=== PATIENT | female | born 1965 | race Two or more races ===

== ENCOUNTER 2016-10-24 14:22 | Emergency (ER) | payer MEDICAID ==
[~2016-10-24] VITALS: Wt 79.0 kg
[2016-10-24] MEDS ORDERED: IBUP-1542 PO (14:51)
[2016-10-24] MEDS ORDERED: CYCL-319 PO (14:51)
--- NOTE | 2016-10-24 15:04 | ERD ---
ER Documentation Chief Complaint Date/Time DATE: 10/24/16 TIME: 15:00 Chief Complaint CHRONIC LOWER BACK PAIN HPI 51 year old female presenting to the emergency department complaining of left buttock pain that radiates down her leg for the past year. Patient states that the pain is moderate to severe. Patient states that she was seen at all of you and out of the clinic who have given her a referral to see a physical therapist. She states that she was given Tylenol for pain which has not helped her. Patient denies any saddle anesthesia, she denies any bowel or bladder incontinence ROS All systems reviewed and are negative except as per history of present illness. Medications Home Meds Active Scripts Cyclobenzaprine Hcl* (Cyclobenzaprine Hcl*) 10 Mg Tablet, 10 MG PO TID, #30 TAB Prov:BARBARA SCHUMACHER PA-C 10/24/16 Ibuprofen* (Motrin*) 600 Mg Tab, 600 MG PO Q6H Y for PAIN AND OR ELEVATED TEMP, #30 TAB Prov:BARBARA SCHUMACHER PA-C 10/24/16 PMhx/Soc History of Surgery: Yes (gall bladder) Anesthesia Reaction: No Hx Neurological Disorder: No Hx Respiratory Disorders: No Hx Cardiac Disorders: No Hx Psychiatric Problems: No Hx Miscellaneous Medical Probl: No Hx Alcohol Use: No Hx Substance Use: No Hx Tobacco Use: No Smoking Status: Never smoker Physical Exam Vitals Vital Signs Date Time Temp Pulse Resp B/P Pulse Ox O2 Delivery O2 Flow Rate FiO2 10/24/16 14:23 98.0 78 18 129/71 99 Physical Exam GENERAL: WD/WN, in no apparent distress, non-toxic appearing HENT: NC/AT EYES: Conjunctiva normal NECK: Supple PULM: Normal labored breathing CV: Good capillary refill GI: Non-distended, no guarding BACK: no deformities noted, normal spinal curvature, TTP on left lumbar and left buttock region, non-tender on spine midline, + straight leg raise EXT: No clubbing, cyanosis, or edema NEURO: Moves on all fours, sensation intact, normal gait SKIN: intact PSYCH: Normal mood Procedures/MDM This is a 51-year-old female presenting to emergency department with sciatica. Patient presents with a referral slip from her clinic for physical therapy. Patient was confused on her condition and treatment in regards to this condition. I have given her a lengthy discussion in regards to sciatica and discussed with her it is best to get a referral list from her primary care physician for physical therapy. Patient did not have any evidence of cauda equina. I have given her a prescription for anti-inflammatories ibuprofen and Flexeril. I discussed with her to return to the ER for any worsening symptoms patient understands and agrees with this plan Departure Diagnosis: Primary Impression: Sciatica Condition: Stable Patient Instructions: Back Exercises: Lower Back Rotation, Back Exercises: Side Stretch, Understanding Sciatica, Back Pain W/ Sciatica Additional Instructions: Vis[facility] [place] [facility] [facility] para un EXAMEN.Regrese a estas instalaciones si no se mejora kalyn esperbamos o kalyn le dijimos. [place] toda la medicina [place] y kalyn se le indic. Regrese a estas instalaciones si no se mejora kalyn esperbamos o kalyn le dijimos. BARBARA SCHUMACHER PA-C Oct 24, 2016 15:04
== END 2016-10-24 15:00 | disposition home or self-care (01) ==
LOC: FTE 14:22
DX: M54.42 Lumbago with sciatica, left side (principal)
CPT/HCPCS: 99283

== ENCOUNTER 2016-11-06 20:48 | Emergency (ER) | payer MEDICAID, OTHER ==
[~2016-11-06] VITALS: Wt 83.5 kg
[~2016-11-06 20:48] MED LIST: CYCL-319 PO; IBUP-1542 PO
--- NOTE | 2016-11-06 21:45 | ERD ---
ER Documentation Chief Complaint Date/Time DATE: 11/06/16 TIME: 21:45 Chief Complaint Left ankle and heel pain. twisted her foot 2 months ago.? HPI Is a 51-year-old female presents the emergency department today complaining of foot and ankle pain for the past month. Patient states that she fell and twisted her ankle since that time she has had pain. States has been taking Tylenol for pain. Denies any fevers or chills. States she has pain with walking and cannot put her foot down. ROS All systems reviewed and are negative except as per history of present illness. Medications Home Meds Active Scripts Naproxen* (Naprosyn*) 500 Mg Tablet, 500 MG PO BID Y for PAIN AND/OR INFLAMMATION, #30 TAB Prov:ANGELA ABREU PA-C 11/06/16 Tramadol HCl (Tramadol HCl) 50 Mg Tablet, 50 MG PO Q4 Y for PAIN, #20 TAB Prov:ANGELA ABREU PA-C 11/06/16 Cyclobenzaprine Hcl* (Cyclobenzaprine Hcl*) 10 Mg Tablet, 10 MG PO TID, #30 TAB Prov:BARBARA SCHUMACHER PA-C 10/24/16 Ibuprofen* (Motrin*) 600 Mg Tab, 600 MG PO Q6H Y for PAIN AND OR ELEVATED TEMP, #30 TAB Prov:BARBARA SCHUMACHER PA-C 10/24/16 Allergies Allergies: Coded Allergies: No Known Allergy (Unverified , 11/06/16) PMhx/Soc History of Surgery: Yes (gall bladder) Anesthesia Reaction: No Hx Neurological Disorder: No Hx Respiratory Disorders: No Hx Cardiac Disorders: No Hx Psychiatric Problems: No Hx Miscellaneous Medical Probl: No Hx Alcohol Use: No Hx Substance Use: No Hx Tobacco Use: No Smoking Status: Never smoker Physical Exam Vitals Vital Signs Date Time Temp Pulse Resp B/P Pulse Ox O2 Delivery O2 Flow Rate FiO2 11/06/16 21:16 99.1 81 20 141/84 100 Physical Exam Const: No acute distress Head: Atraumatic Eyes: Normal Conjunctiva ENT: Normal External Ears, Nose and Mouth. Neck: Full range of motion..~ No meningismus. Resp: Clear to auscultation bilaterally Cardio: Regular rate and rhythm, no murmurs Skin: No petechiae or rashes Back: No midline or flank tenderness Ext: Left foot and ankle with no obvious deformity. No effusion. No ecchymosis. Tenderness to palpation medial malleolus and heel. Pulses 2+. Distal neurovascularly intact. Neur: Awake and alert Psych: Normal Mood and Affect Results 24 hrs Current Medications Medications (Trade) Dose Ordered Sig/David Route PRN Reason Start Time Stop Time Status Last Admin Dose Admin Acetaminophen/ Hydrocodone Bitart ([place] (5/325)) 1 tab ONCE ONCE PO 11/06/16 22:00 11/06/16 22:00 DC 11/06/16 21:44 Ibuprofen (Motrin) 800 mg ONCE ONCE PO 11/06/16 22:00 11/06/16 22:01 DC 11/06/16 21:48 DIAGNOSTIC IMAGING REPORT Patient: FARIHA WATERS : 1965 Age: 51 Sex: F MR #: [id number] DOS: 11/06/16 0000 Ordering MD: ANGELA ABREU PA-C Location: [facility] Room/Bed: PROCEDURE: XR Ankle. CLINICAL INDICATION: 51-year-old female. Left ankle pain. TECHNIQUE: Three views of the left ankle. COMPARISON: None available. FINDINGS: No acute fracture or dislocation is identified. There is an osteochondral lesion in the medial talar dome with a small subchondral lucency. Negative for depression of the articular surface. Normal alignment on this non-stressed view. The joint spaces are preserved. Mild soft tissue swelling over lateral malleolus.. IMPRESSION: Negative for evidence of acute fracture or dislocation of the left ankle. Osteochondral lesion medial talar dome is likely unrelated to acute trauma. RPTAT: HCTS Physician Mehul Date Time Electronically viewed and signed by Physician Mehul on 11/06/2016 22: 24 CS/ CC: ANGELA ABREU PA-C DIAGNOSTIC IMAGING REPORT Patient: FARIHA WATERS : 1965 Age: 51 Sex: F MR #: [id number] DOS: 11/06/16 0000 Ordering MD: ANGELA ABREU PA-C Location: [facility] Room/Bed: PROCEDURE: XR Foot. CLINICAL INDICATION: 51-year-old female Pain. TECHNIQUE: Three views of the left foot. COMPARISON: None available. FINDINGS: No fracture or dislocation is identified. Mild osteoarthritis of the talonavicular joint with osteophytes and a small geode in the dorsal navicular. Bone spur at the base of the calcaneus. Calcified phleboliths in the dorsal soft tissues. There may be mild soft tissue swelling at the medial aspect of the midfoot at the site of pain.. . IMPRESSION: Negative for evidence of acute fracture or dislocation of the left foot. RPTAT: HCTS Physician Mehul Date Time Electronically viewed and signed by Monica Ralph, Physician on 11/06/2016 22: 22 CS/ CC: ANGELA ABREU PA-C Procedures/MDM This a 51-year-old female who presents emergency department today complaining of left foot and ankle pain after twisting her ankle approximately 1 month ago. States she is having pain with ambulation and has been taking Tylenol for the pain but she is unable to put her foot down. Patient's trauma and difficulty ambulating I did obtain x-rays Per the radiology report images of the left ankle show no acute fracture dislocation. There is an osteochondral lesion in the medial talar dome with a small subchondral lucency. Negative for depression of the articular surface. Joint spaces are preserved. There is mild soft tissue swelling over the lateral malleolus. Osteochondral lesion medial talar dome is likely unrelated to acute trauma. Images of the left foot show no fracture dislocation. There is mild osteoporosis of the talonavicular joint with osteophytes and a small geode in the dorsal navicular area there is a bone spur at the base of the calcaneus. Patient heel spur and osteochondral lesion likely the source of the patient's foot and ankle pain. I have explained this to her. I explained her that she is to follow the primary care doctor for referral to affirmative action specialist. Low suspicion for septic joint or gout. She was given Motrin here in the emergency department patient was driving. She will begin a short course of tramadol, Naprosyn and Tylenol for home. I did offer crutches to help the patient ambulate however she declined. At this time the patient is stable for discharge and outpatient management. Patient should follow up with their PCP in the next 1-2 days. They may return to the emergency department sooner for any persistent or worsening of symptoms. Patient understood and agreed with the plan. Departure Diagnosis: Primary Impression: Ankle pain Laterality: left Chronicity: chronic Qualified Code: M25.572 - Chronic pain of left ankle Additional Impression: Heel spur Laterality: left Qualified Code: M77.32 - Heel spur, left Condition: Fair ANGELA ABREU PA-C Nov 06, 2016 21:45
[2016-11-06] MEDS ORDERED: IBUPROFEN 800 MG TAB PO ONE (22:00)
[2016-11-06] MEDS ORDERED: HYDROCODONE/APAP (5/325) TAB PO ONE (22:00)
--- NOTE | 2016-11-06 22:22 | RADRPT ---
PROCEDURE: XR Foot. CLINICAL INDICATION: 51-year-old female Pain. TECHNIQUE: Three views of the left foot. COMPARISON: None available. FINDINGS: No fracture or dislocation is identified. Mild osteoarthritis of the talonavicular joint with osteo phytes and a small geode in the dorsal navicular. Bone spur at the base of the calcaneus. Calcifie d phleboliths in the dorsal soft tissues. There may be mild soft tissue swelling at the medial aspe ct of the midfoot at the site of pain.. . IMPRESSION: Negative for evidence of acute fracture or dislocation of the left foot. RPTAT: HCTS Physician Mehul Date Time Electronically viewed and signed by Physician Mehul on 11/06/2016 22:22 /
--- NOTE | 2016-11-06 22:25 | RADRPT ---
PROCEDURE: XR Ankle. CLINICAL INDICATION: 51-year-old female. Left ankle pain. TECHNIQUE: Three views of the left ankle. COMPARISON: None available. FINDINGS: No acute fracture or dislocation is identified. There is an osteochondral lesion in the medial talar dome with a small subchondral lucency. Negative for depression of the articular surface. Normal a lignment on this non-stressed view. The joint spaces are preserved. Mild soft tissue swelling over lateral malleolus.. IMPRESSION: Negative for evidence of acute fracture or dislocation of the left ankle. Osteochondral lesion media l talar dome is likely unrelated to acute trauma. RPTAT: HCTS Physician Mehul Date Time Electronically viewed and signed by Physician Mehul on 11/06/2016 22:24 /
[2016-11-06] MEDS ORDERED: TRAM50TA2 PO (22:34)
[2016-11-06] MEDS ORDERED: NAPR-260 PO (22:35)
[2016-11-06 23:19] VITALS: BP 144/96; PULSE 73; RESP 16; TEMP 98.4
== END 2016-11-06 23:21 | disposition home or self-care (01) ==
LOC: FTE 20:48
DX: M25.572 Pain in left ankle and joints of left foot (principal); M77.32 Calcaneal spur, left foot
CPT/HCPCS: 73610; 73630; Z7502; Z7610

== ENCOUNTER 2018-02-17 07:22 | Day surgery (SDC) | END 2018-02-17 13:25 | disposition home or self-care (01) ==

== ENCOUNTER 2018-04-13 07:07 | Emergency (ER) | payer SELFPAY ==
[~2018-04-13] VITALS: Wt 78.0 kg
[~2018-04-13 07:07] MED LIST changes: +ASPIRIN; -CYCL-319 PO
[2018-04-13] MEDS ORDERED: SOD CHLORIDE 0.9% 1,000 ML IV STA (08:17)
[2018-04-13] MEDS ORDERED: ONDANSETRON 4 MG INJ IV STA (08:17)
[2018-04-13 08:29] VITALS: BP 124/66; PULSE 55; RESP 17
--- NOTE | 2018-04-13 08:29 | ERD ---
ER Documentation Chief Complaint Chief Complaint DIARRHEA X3 DAYS, NAUSEA, ABD PAIN HPI 53 yo female no significant past medical history presents with 3 days of symptoms of diarrhea. She describes mild epigastric abdominal cramping with multiple episodes of loose stool approximately 10 times per day. She denies any recent travel, sick contacts, antibiotics. No chest pain. Mild nausea but no vomiting. During the patient's encounter translation services were utilized Language: [place]alan Source: In person ROS All systems reviewed and are negative except as per history of present illness. Medications Home Meds Active Scripts Ondansetron (Ondansetron Odt) 4 Mg Tab.rapdis, 4 MG PO Q6H PRN for NAUSEA AND/OR VOMITING, #20 TAB Prov:KLAUS BALES MD 04/13/18 Dicyclomine HCl (Dicyclomine HCl) 10 Mg Capsule, 10 MG PO TID PRN for ABDOMINAL CRAMPING, #20 CAP Prov:KLAUS BALES MD 04/13/18 Reported Medications Naproxen* (Naproxen*) 375 Mg Tablet, 375 MG PO BID PRN for PAIN, TAB 04/13/18 Discontinued Reported Medications [Aspirin] No Conflict Check 02/17/18 Discontinued Scripts Ibuprofen* (Motrin*) 600 Mg Tab, 600 MG PO Q6H PRN for PAIN AND OR ELEVATED TEMP, #30 TAB Prov:BARBARA SCHUMACHER PA-C 10/24/16 Allergies Allergies: Coded Allergies: No Known Allergy (Unverified , 02/17/18) PMhx/Soc History of Surgery: Yes (CHOLECYSTECTOMY) Anesthesia Reaction: Yes (PT STATES THAT IT TAKES MORE NUMBING MEDICATION FOR EFFECT FOR DENTAL VISIT) Hx Neurological Disorder: No Hx Respiratory Disorders: No Hx Cardiac Disorders: No Hx Psychiatric Problems: No Hx Miscellaneous Medical Probl: No Hx Alcohol Use: No Hx Substance Use: No Hx Tobacco Use: No Smoking Status: Never smoker FmHx Family History: No diabetes Physical Exam Vitals Vital Signs Date Temp Pulse Resp B/P (MAP) Pulse Ox O2 O2 Flow FiO2 Time Delivery Rate 04/13/18 55 17 124/66 100 Room Air 08:29 (85) 04/13/18 97.4 68 20 133/83 99 07:14 (100) Physical Exam General: Well developed, well nourished, no acute distress Head: Normocephalic, atraumatic. Eyes: Pupils equally reactive, EOM intact ENT: Moist mucous membranes Neck: Supple, no lymphadenopathy Respiratory: Lungs clear bilaterally, no distress Cardiovascular: RRR, no murmurs, rubs, or gallops Abdominal: Soft, non-tender, non-distended, no peritoneal signs, no tenderness to McBurney's point, negative Barlow sign : Deferred MSK: No edema, no unilateral swelling, 5/5 strength Neurologic: Alert and oriented, moving all extremities, normal speech, no focal weakness, no cerebellar signs Skin: No rash Psych: Normal mood Result Diagram: 04/13/18 0822 04/13/1822 Results 24 hrs Laboratory Tests Test 04/13/18 08:22 White Blood Count 5.0 10^3/ul Red Blood Count 4.66 10^6/ul Hemoglobin 13.9 g/dl Hematocrit 42.3 % Mean Corpuscular Volume 90.8 fl Mean Corpuscular Hemoglobin 29.8 pg Mean Corpuscular Hemoglobin Concent 32.9 g/dl Red Cell Distribution Width 13.1 % Platelet Count 304 10^3/UL Mean Platelet Volume 10.8 fl Immature Granulocytes % 0.200 % Neutrophils % 53.7 % Lymphocytes % 31.4 % Monocytes % 10.7 % Eosinophils % 3.8 % Basophils % 0.2 % Nucleated Red Blood Cells % 0.0 /100WBC Immature Granulocytes # 0.010 10^3/ul Neutrophils # 2.7 10^3/ul Lymphocytes # 1.6 10^3/ul Monocytes # 0.5 10^3/ul Eosinophils # 0.2 10^3/ul Basophils # 0.0 10^3/ul Nucleated Red Blood Cells # 0.0 10^3/ul Sodium Level 146 mmol/L Potassium Level 4.0 mmol/L Chloride Level 107 mmol/L Carbon Dioxide Level 27 mmol/L Anion Gap 12 Blood Urea Nitrogen 17 mg/dl Creatinine 0.52 mg/dl Est Glomerular Filtrat Rate mL/min > 60 mL/min Glucose Level 95 mg/dl Calcium Level 9.4 mg/dl Current Medications Medications Dose Sig/David Start Time Status Last (Trade) Ordered Route PRN Stop Time Admin Dose Reason Admin Sodium 1,000 ml @ Q1H STAT 04/13/18 04/13/18 Chloride 1,000 mls/hr IV 08:17 08:31 04/13/18 09:16 Ondansetron 4 mg ONCE STAT 04/13/18 DC 04/13/18 HCl (Zofran IV 08:17 08:31 Inj) 04/13/18 08:18 Dicyclomine 10 mg ONCE ONCE 04/13/18 DC 04/13/18 HCl IM 08:30 08:31 (Bentyl) 04/13/18 08:31 Procedures/MDM LAB INTERPRETATION: * No leukocytosis, no electrolyte disturbance MEDICAL DECISION MAKING: The patient has abdominal pain and diarrhea likely viral in etiology. She has a benign abdominal exam without concern for acute intra-abdominal process. No signs or symptoms concerning for hepatobiliary process, appendicitis or bowel obstruction. Very low pretest probability for bacterial infection. Patient has large volumes of diarrhea and will benefit from laboratory testing to rule out significant dehydration. IV fluids and symptom control appropriate. No risk factors for C. difficile colitis. ER COURSE: * Laboratory testing reassuring * Symptoms improved with fluids and nonnarcotic pain medication * At this point the patient is safe for discharge, likely viral in etiology. Return precautions were discussed and understood. CONSULTATION: [None] DISPOSITION PLAN: The patient does not have an identifiable emergent medical condition that warrants inpatient hospitalization at this time. The patient is deemed safe for discharge with outpatient follow-up. We discussed follow up with the patient's primary care doctor within 24 to 48 hours as needed. We also discussed return to the emergency room for worsening symptoms or worsening condition. Outpatient referral: [None required] Discharge Medications: Zofran, Bentyl Departure Diagnosis: Primary Impression: Abdominal pain, epigastric Additional Impression: Diarrhea Diarrhea type: unspecified type Qualified Codes: R19.7 - Diarrhea, unspecified Condition: KLAUS Brown MD Apr 13, 2018 08:29
[2018-04-13] MEDS ORDERED: DICYCLOMINE 20 MG INJ IM ONE (08:30)
[2018-04-13] MEDS ORDERED: NAPR-685 PO (08:40)
[2018-04-13] MEDS ORDERED: ONDA4TAB14 PO (09:12)
[2018-04-13] MEDS ORDERED: DICY10CA40 PO (09:12)
== END 2018-04-13 09:45 | disposition home or self-care (01) ==
LOC: E/R 07:07
DX: R10.13 Epigastric pain (principal); R11.0 Nausea
CPT/HCPCS: 36415; 80048; 85025; 96361; 96372; 96374; 99284; J0500; J2405; J7030